=== PATIENT | male | born 1935 | race Caucasian/White ===

== ENCOUNTER → 2020-10-31 06:35 | Outpatient (CLI) | payer MEDICARE, OTHER, SELFPAY ==
--- NOTE | 2020-10-31 06:37 | DI.MRI.S_ITS ---
PROCEDURE: MR LUMBAR SPINE WO CON INDICATIONS: BACK PAIN TECHNIQUE: Noncontrast sagittal T1 spin echo and T2 fast echo, sagittal STIR, axial T1 and T2 fast spin echo through the lumbar spine. In cases with scoliosis, additional coronal T2 fast spin echo may be performed. COMPARISON: [facility], RG, XR L-SPINE 2-3V, 08/31/2020, 13:11. [facility], CR, XR LUMBAR SPINE 2 OR 3 VIEWS, 04/06/2019, 13:25. [facility], MR, L-SPINE WITHOUT CONTRAST, 01/10/2017, 13:52. FINDINGS: Image quality: Excellent. Alignment and Curvature: There is normal bony alignment. In degrees of convex left lumbar spine scoliosis. Bone Marrow: Reactive endplate changes noted adjacent to the L1-L2, L3-L4, L4-L5 and L5-S1 discs. No acute vertebral body compression fractures. Spinal Cord: Conus medullaris terminates at the L1 level. Visualized cord demonstrates normal signal and size. Paraspinous Soft Tissues: No paravertebral masses. T12-L1: Loss of disc signal and slight loss of disc height. Minimal, diffuse disc bulge. No central stenosis. No neural foraminal narrowing. No neural compression. L1-L2: Loss of disc signal. Mild, diffuse disc bulge. Mild bilateral facet hypertrophy. No central stenosis. Mild right neural foraminal narrowing. No neural compression. L2-L3: Loss of disc signal. Mild bilateral facet hypertrophy. Mild narrowing of the central canal. Mild right neural foraminal narrowing. No neural compression. L3-L4: Loss of disc signal and height. Mild, diffuse disc bulge. Kcip-mk-[id number] bilateral facet hypertrophy. Mild to moderate narrowing of the central canal. Mild bilateral neural foraminal narrowing. No neural compression. Fissure noted in the posterior annulus. L4-L5: Loss of disc signal. Mild, diffuse disc bulge. Moderate bilateral facet hypertrophy. Mild to moderate narrowing of the central canal. Mild right and moderate left neural foraminal narrowing. No neural compression. Fissure noted in the anterior annulus. L5-S1: Loss of disc signal and height. Mild bilateral facet hypertrophy. No central stenosis. Mild left neural foraminal narrowing. No neural compression. Fissures noted in the annulus. IMPRESSION: 1. Convex left scoliosis. 2. Multilevel degenerative disc disease. 3. Multilevel facet arthropathy. 4. No severe central canal narrowing. 5. No severe neural foraminal narrowing. 6. No neural compression. 7. L3-L4, L4-L5 and L5-S1 disc annulus fissures. Dictated by: Ada Pepe MD, PhD on 10/31/2020 at 9:57 Approved by: Ada Pepe MD, PhD on 10/31/2020 at 10:23
== END ==
PROVIDERS: Family Provider Internal Medicine; PCP Family Medicine; Referring Provider Physical Medicine & Rehabilitation; Visit Provider Physical Medicine & Rehabilitation
DX: M48.061 Spinal stenosis, lumbar region without neurogenic claudication (principal); M48.07 Spinal stenosis, lumbosacral region; M51.16 Intervertebral disc disorders with radiculopathy, lumbar region; M47.26 Other spondylosis with radiculopathy, lumbar region; M47.27 Other spondylosis with radiculopathy, lumbosacral region; M41.26 Other idiopathic scoliosis, lumbar region
CPT/HCPCS: 72148

== ENCOUNTER → 2020-11-14 07:07 | Outpatient (CLI) | payer MEDICARE, OTHER, SELFPAY ==
[2020-11-14 11:24] LABS: COVID19 -Nasal RAPID Negative (Negative)
== END ==
PROVIDERS: Family Provider Internal Medicine; PCP Family Medicine; Visit Provider Physical Medicine & Rehabilitation
DX: Z20.822 Contact with and (suspected) exposure to COVID-19 (principal)
CPT/HCPCS: 87635; C9803

== ENCOUNTER 2020-11-16 09:55 | Outpatient (CLI) | payer MEDICARE, OTHER, SELFPAY ==
[2020-11-16] VITALS (10 sets, daily range): BP systolic 99–165; BP diastolic 57–68; PULSE 61–70; RESP 12–24; TEMP 36.3; O2SAT 95–100
--- NOTE | 2020-11-16 09:56 | DI.RAD.S_ITS ---
PROCEDURE: PAIN L/S FACET INJ/BLK 1ST LISSET COMPARISON: [facility], RG, XR L-SPINE 2-3V, 08/31/2020, 13:11. INDICATIONS: SPONDYLOSIS FINDINGS: Fluoroscopic spot filming was performed to verify placement of spinal needles at the L4-L5 level and L5-S1 level on both sides, as labeled on the films. Appropriate location of the needle tips was confirmed by injection of iodinated contrast. IMPRESSION: Intraprocedural examination within normal limits. Dictated by: Bebo Kwan M.D. on 11/16/2020 at 11:30 Approved by: Bebo Kwan M.D. on 11/16/2020 at 11:31
[2020-11-16] MEDS: BETAMETHASONE 30 MG/5 ML MDV 12 MG INJ (10:49)
[2020-11-16] MEDS: IOPAMIDOL 15 ML VIAL 3 ML INJ (10:49)
[2020-11-16] MEDS: BUPIVACAINE 0.5% (PF) VIAL 2 ML INJ (10:50)
[2020-11-16] MEDS: LIDOCAINE 1% 20 ML 10 ML INJ (10:51)
[2020-11-16] MEDS: MIDAZOLAM 5 MG/5 ML VIAL IV (10:53)
--- NOTE | 2020-11-16 11:02 | P.PCN_ITS ---
Date/Time/Diagnoses Date of procedure: 11/16/20 Time of procedure: 11:02 Pre-procedure diagnosis: 1. FACET ARTHROPATHY 2. AXIAL LBP 3. MULTILEVEL DDD Post-procedure diagnosis: same Procedure Notes Procedure: 1. FLUOROSCOPICALLY GUIDED CONTRAST CONTROLLED FACET JOINT INJECTIONS BILATERAL L4/5, L5/S1 Indications: Subha is referred by Dr. Oviedo for treatment of Axial LBP Physician: Gary Dwyer Total Fluoroscopy time (seconds): 10 Total sedation minutes: 16 Complications: none Procedure in detail & Post-procedure care: FINDINGS Multilevel Facet Arthropathy with Clinically significant axial LBP DESCRIPTION OF PROCEDURE Fluoroscopically guided, contrast-controlled bilateral L4/5, L5/S1 facet joint injections. Following review of allergy and review of potential side effects and complications, including, but not necessarily limited to, infection, allergic reaction, local tissue breakdown, stroke, temporary or permanent nerve injury, paralysis, and possible , the patient indicated that the patient understood and agreed to proceed. An informed consent document was signed by the patient, witnessed by a nurse, and placed in the patient's chart. Additionally, other treatment options including medications, modalities, and physical therapy were reviewed with the patient. After review of previous anaesthesic history and IV conscious sedation the patient was deemed safe to proceed with today?s procedure with IV conscious sedation as ASA class II designation. Safety time-out was performed to confirm patient ID, procedure to be performed and site of procedure. IV sedation was accomplished with a combination of 3mg of Versed was administered by the RN after DO order, titrated to patient comfort during the course of the procedure while the patient remained responsive to all verbal commands In the prone position, following sterile prep and drape of the lumbar region, the posterior aspect of the L4/5, L5/S1 facet joints were identified fluoroscopically. The skin was anesthetized via a 25-gauge 1.5inch needle with 1% lidocaine solution into the corresponding facet joints. At this point, a 22- gauge 3.5-inch spinal needle was atraumatically introduced and advanced under fluoroscopic guidance into the corresponding facet joints. Following negative aspiration, injections of approximately 0.2cc of Isovue 200 confirmed interarticular placement without vascular uptake. The identical procedure was then performed at the L4/5, L5/S1 facet joints on the left. Radiological data, including multiple fluoroscopic views of the lumbosacral spine, reveal a spinal needle at the L4/5, L5/S1 facet joints bilaterally. Subsequent views show flow of contrast material both superiorly and inferiorly within the joint space without vascular or intrathecal uptake. At this point, a total of 0.5cc including a mixture of 0.25cc Marcaine and 0.25cc betamethasone was injected without complication into each of the corresponding facet joints. The patient tolerated the procedure well without signs or symptoms of complications prior to transfer to the recovery area continued monitoring without incident. The patient was then transferred to the recovery area where they were observed for an appropriate period of time after the injection. The patient reported a VAS score of 7 prior to the procedure and a post- procedure VAS of 0. POST OP INSTRUCTIONS The patient was provided a Pain Log to continue to record their response to the target-specific procedure prior to follow-up visit with their referring physician. Additionally, specific post-injection care instructions and a contact number to our office were provided if concerns arise regarding possible complications associated with the procedure are suspected.
== END 2020-11-16 11:34 | disposition home or self-care (01) ==
LOC: RAD 09:56
PROVIDERS: Family Provider Internal Medicine; PCP Family Medicine; Referring Provider Physical Medicine & Rehabilitation; Visit Provider Physical Medicine & Rehabilitation
DX: M47.816 Spondylosis without myelopathy or radiculopathy, lumbar region (principal); M47.817 Spondylosis without myelopathy or radiculopathy, lumbosacral region; M51.36 Other intervertebral disc degeneration, lumbar region; M51.37 Other intervertebral disc degeneration, lumbosacral region; M54.5 Low back pain
CPT/HCPCS: 64493; 64494; 99152; J0702; J2250; J3010

== ENCOUNTER → 2021-02-19 08:27 | Outpatient (CLI) | payer MEDICARE, OTHER, SELFPAY ==
[2021-02-19 13:01] LABS: COVID19 -Nasal RAPID Negative (Negative)
== END ==
PROVIDERS: Family Provider Internal Medicine; PCP Family Medicine; Visit Provider Physical Medicine & Rehabilitation
DX: Z20.822 Contact with and (suspected) exposure to COVID-19 (principal)
CPT/HCPCS: 87635; C9803

== ENCOUNTER 2021-02-20 10:04 | Outpatient (CLI) | payer MEDICARE, OTHER, SELFPAY ==
[2021-02-20] VITALS (10 sets, daily range): BP systolic 104–143; BP diastolic 57–68; PULSE 61–69; RESP 12–20; TEMP 36.4; O2SAT 95–100
--- NOTE | 2021-02-20 10:07 | DI.RAD.S_ITS ---
PROCEDURE: PAIN L/S FACET INJ/BLK 1ST LISSET COMPARISON: [facility], , PAIN L/S FACET INJ/BLK 1ST LISSET, 11/16/2020, 10:49. INDICATIONS: SPONDYLOSIS FINDINGS: Fluoroscopic spot filming was performed to verify placement of spinal needles on both sides at the L4, L5, and S1 levels, as labeled on the films. Appropriate location of the needle tips was confirmed by injection of iodinated contrast. IMPRESSION: Intraprocedural examination within normal limits. Dictated by: Bebo Kwan M.D. on 02/20/2021 at 11:13 Approved by: Bebo Kwan M.D. on 02/20/2021 at 11:13
[2021-02-20] MEDS: MIDAZOLAM 5 MG/5 ML VIAL IV (11:05)
[2021-02-20] MEDS: fentaNYL 100 MCG/2 ML INJ 50 MCG IV (11:05)
[2021-02-20] MEDS: BUPIVACAINE 0.5% (PF) VIAL 5 ML INJ (11:07)
[2021-02-20] MEDS: IOPAMIDOL 15 ML VIAL 3 ML INJ (11:07)
[2021-02-20] MEDS: LIDOCAINE 1% 20 ML 10 ML INJ (11:07)
--- NOTE | 2021-02-20 11:27 | P.PCN_ITS ---
Date/Time/Diagnoses Date of procedure: 02/20/21 Time of procedure: 11:27 Pre-procedure diagnosis: 1. FACET ARTHROPATHY Post-procedure diagnosis: same Procedure Notes Procedure: 1. BILATERAL- L4, L5 and S1 DIAGNOSTIC MB BLOCKS with LA Anesthetic Indications: Subha is referred by Dr. Oviedo for treatment of Bilateral Axial LBP. Physician: Gary Dwyer Total Fluoroscopy time (seconds): 13 Total sedation minutes: 17 Complications: none Procedure in detail & Post-procedure care: DESCRIPTION OF PROCEDURE Fluoroscopically guided, contrast-controlled bilateral L4, L5 and S1 medial branch blocks with 0.5cc of 0.5% Marcaine. Following review of allergy and review of potential side effects and complications, including, but not necessarily limited to, infection, allergic reaction, local tissue breakdown, nerve injury, paralysis, stroke and possible , the patient indicated that the patient understood and agreed to proceed. An informed consent document was signed by the patient, witnessed by a nurse, and placed in the patient's chart. After review of previous anaesthesic history and IV conscious sedation the patient was deemed safe to proceed with today's procedure with IV conscious sedation as ASA class II designation. Safety time-out was performed to confirm patient ID, procedure to be performed and site of procedure. IV sedation was accomplished with a combination of 2mg of Versed and 50mcg of Fentanyl was administered by the RN after DO order, titrated to patient comfort during the course of the procedure while the patient remained responsive to all verbal commands In the prone position, following sterile prep and drape of the lumbar region, the right L4, L5 and S1 anatomical location of the medial branch of the dorsal ramus was identified fluoroscopically. Subsequently an anesthetic skin wheal using 1% lidocaine solution was initiated at each of the anatomical spots. Subsequently then a 22-gauge 3.5-inch spinal needle was atraumatically introduced and advanced under fluoroscopic guidance at each of the corresponding sites at the right L4, L5 and S1 MB. After negative aspiration, 0.2cc of Isovue 200 was injected, confirming placement without vascular or intrathecal uptake. Subsequently then 0.5cc of 0.5% Marcaine solution was injected at each of the corresponding sites at the right L4, L5 and S1 medial branch locations. The identical procedure was replicated on the left. The patient tolerated the procedure well without signs or symptoms of complications prior to transfer to the recovery area continued monitoring without incident. Post-procedure, the patient was monitored initiating provocative activities to measure the amount of relief from block of the facetogenic pain. The patient reported a VAS of 7 prior to the procedure and a post-procedure VAS of 1. It has been a pleasure to assist in the diagnostic and therapeutic care of your patient. POST OP INSTRUCTIONS The patient was provided with a Pain Log to complete over the next several hours and subsequent days prior to the patient's follow up with the ordering physician. If the patient has supervisor coin machine relief to the solution applied, then they may be a candidate for medial branch rhizotomy. The patient is aware, was provided, once again, with a Pain Log and will follow up with the referring physician for review and clinical correlation
== END 2021-02-20 11:58 | disposition home or self-care (01) ==
PROVIDERS: Family Provider Internal Medicine; PCP Family Medicine; Referring Provider Physical Medicine & Rehabilitation; Visit Provider Physical Medicine & Rehabilitation
DX: M47.816 Spondylosis without myelopathy or radiculopathy, lumbar region (principal); M47.817 Spondylosis without myelopathy or radiculopathy, lumbosacral region; M54.5 Low back pain
CPT/HCPCS: 64493; 64494; 99152; J2250; J3010

== ENCOUNTER → 2021-12-05 08:36 | Outpatient (CLI) | payer MEDICARE, OTHER, SELFPAY ==
--- NOTE | 2021-12-05 08:38 | DI.RAD.S_ITS ---
PROCEDURE: XR HIP W PEL IF DONE LISSET MIN 4V INDICATIONS: Right lateral hip pain status post fall July TECHNIQUE: AP pelvis with lateral views of each hip. COMPARISON: None. FINDINGS: Bones: No acute fractures or dislocations. Pelvic ring appears intact. No suspicious bony lesions. Mild degenerative changes are seen in the hips bilaterally. Degenerative changes also seen in the included lumbar spine. Soft tissues: The visualized bowel gas pattern is normal. No suspicious soft tissue calcifications. IMPRESSION: Mild symmetric bilateral hip osteoarthrosis. No acute osseous abnormality. If the symptoms persist, consider cross sectional imaging such as MRI or CT for further assessment. Dictated by: Celestine Earl M.D. on 12/05/2021 at 11:55 Approved by: Celestine Earl M.D. on 12/05/2021 at 11:56
--- NOTE | 2021-12-05 08:38 | DI.RAD.S_ITS ---
PROCEDURE: XR LUMBAR SPINE MIN 4V INDICATIONS: BACK PAIN TECHNIQUE: 5 views of the lumbar spine were acquired, including bilateral oblique views. COMPARISON: [facility], RG, XR L-SPINE 2-3V, 08/31/2020, 13:11. FINDINGS: Bones: 5 nonrib-bearing vertebrae are present. There is leftward scoliotic curvature within the lumbar spine. Multilevel degenerative disc space narrowing is present most severe at L1-2 and L5-S1. Multilevel anterior bridging osteophytes are present. In addition, severe foraminal narrowing is present at multiple levels most significant at L4-5 and L5-S1. Overall changes are similar compared to prior exam.. No vertebral body compression fractures. No suspicious bony lesions. Soft tissues: Overlying bowel gas pattern is normal. No suspicious soft tissue calcifications. Oblique images: No pars defects. IMPRESSION: Persistent multilevel degenerative changes overall stable compared to prior exam. Dictated by: Saritha Pugh M.D. on 12/05/2021 at 15:16 Approved by: Saritha Pugh M.D. on 12/05/2021 at 15:17
== END ==
PROVIDERS: Family Provider Internal Medicine; PCP Family Medicine; Referring Provider Physical Medicine & Rehabilitation; Visit Provider Physical Medicine & Rehabilitation
DX: M70.61 Trochanteric bursitis, right hip (principal); M47.816 Spondylosis without myelopathy or radiculopathy, lumbar region; M48.061 Spinal stenosis, lumbar region without neurogenic claudication; M54.16 Radiculopathy, lumbar region; M16.0 Bilateral primary osteoarthritis of hip; M41.26 Other idiopathic scoliosis, lumbar region
CPT/HCPCS: 20611; 72110; 73522; 99214; J0702

== ENCOUNTER 2022-04-23 07:11 | Outpatient (CLI) | payer MEDICARE, OTHER, SELFPAY ==
[2022-04-23] VITALS (14 sets, daily range): BP systolic 112–163; BP diastolic 56–97; PULSE 56–65; RESP 12–24; TEMP 36.2; O2SAT 96–99
--- NOTE | 2022-04-23 07:13 | DI.RAD.S_ITS ---
PROCEDURE: PAIN L/S MED/LAT N RFA BILAT INDICATIONS: SPONDYLOSIS COMPARISON: None. FINDINGS: Fluoroscopic spot filming was performed to verify placement of spinal needles at the right L4, L5, and S1 level(s), as labeled on the films. Appropriate location(s) of the needle tip(s) was confirmed by injection of iodinated contrast. IMPRESSION: Fluoro guidance was provided intraoperatively for bilateral L4, L5, S1 medial branch rhizotomy performed by ordering physician. Dictated by: Bryan Ceballos M.D. on 04/23/2022 at 10:54 Approved by: Bryan Ceballos M.D. on 04/23/2022 at 10:55
[2022-04-23] MEDS: BUPIVACAINE 0.5% (PF) VIAL 5 ML INJ (08:35)
[2022-04-23] MEDS: LIDOCAINE 1% 20 ML 5 ML INJ (08:36)
[2022-04-23] MEDS: MIDAZOLAM 2 MG/2 ML VIAL 4 MG IV (09:09)
--- NOTE | 2022-04-23 09:16 | P.PCN_ITS ---
Date/Time/Diagnoses Date of procedure: 04/23/22 Time of procedure: 09:16 Pre-procedure diagnosis: 1. RECALCITRANT FACET ARTHROPATHY Post-procedure diagnosis: same Procedure Notes Procedure: 1. BILATERAL L4 AND L5 MEDIAL BRANCH RADIOFREQUENCY NEUROTOMY AND S1 DORSAL RAMUS BRANCH RADIOFREQUENCY NEUROTOMY Indications: Subha is referred by Dr. Oneal for treatment of facet arthropathy. Physician: Gary Dwyer Total Fluoroscopy time (seconds): 28 Total sedation minutes: 40 Complications: none Procedure in detail & Post-procedure care: DESCRIPTION OF PROCEDURE Bilateral L4 and L5 medial branch radiofrequency neurotomy and bilateral S1 dorsal ramus radiofrequency neurotomy under fluoroscopy with conscious sedation. The patient is well known to this clinic having undergone previous facet injections with good but temporary relief. The patient has experienced appropriate, concordant relief with previous facet and median branch blocks but the patient's pain has been recalcitrant to further conservative measures. Therefore, based upon the patient's relief and persistent symptoms, the patient is considered an appropriate candidate for facet rhizotomy. All of the patient's questions regarding the risks versus benefits of the procedure, including, but not limited to, bleeding, infection, temporary as well as lasting nerve injury, paralysis, stroke, and , as well treatment alternatives were answered to satisfaction. After obtaining informed consent, denial of pertinent drug allergies, as well as being made aware of the potential risks of bleeding, infection, spinal cord trauma, paralysis, temporary and permanent nerve damage, seizure, stroke, and possible , the patient was brought to the fluoroscopy suite and positioned prone on the fluoroscopy table. The lumbar region was prepped with Betadine and covered with a fenestrated drape in the usual sterile fashion. Appropriate monitors applied including pulse oximeter, pulse, and blood pressure for regular monitoring throughout the procedure. After review of previous anaesthesic history and IV conscious sedation the patient was deemed safe to proceed with today's procedure with IV conscious sedation as ASA class II designation. Safety time-out was performed to confirm patient ID, procedure to be performed and site of procedure. IV sedation was accomplished with a combination of 4mg of Versed administered by the RN after DO order, titrated to patient comfort during the course of the procedure while the patient remained responsive to all verbal commands. After local infiltration using 1% lidocaine, under fluoroscopic guidance, a 10- cm RF insulated needle with a 10-mm active tip was positioned parallel to the junction of the right sacral ala and the superior articulating process where the S1 dorsal ramus resides. Needle placement was confirmed with motor stimulation of .5v on the right which produced local stimulation without radicular component. The stimulation was then increased to 2v with, once again, only local multifidus stimulation without radicular component. The needle was then removed and the identical procedure was performed along the length of the right L5 medial branch with motor stimulation at .7v on the right. The identical procedure was once again performed along the length of the right L4 medial branch with motor stimulation of .5v on the right. The medial branches were then anesthetised with 0.5% Marcaine. This was then followed by a discreet lesion performed at 80 degrees Celsius for 90 seconds each. The identical procedure was repeated on the left. The patient tolerated the procedure well without signs or symptoms of complications prior to transfer to the recovery area continued monitoring without incident. The patient was then transferred to the recovery area where they were observed for an appropriate period of time after the injection. The patient reported a VAS score of 9 prior to the procedure and a post-procedure VAS of 0. POST OP INSTRUCTIONS The patient was provided a Pain Log to continue to record the patient's response to the target-specific procedure prior to the patient's follow-up visit with the referring physician. Additionally, specific post-injection care instructions and a contact number to our office were provided if concerns arise regarding possible complications associated with the procedure are suspected.
== END 2022-04-23 09:34 | disposition home or self-care (01) ==
LOC: RAD 07:12
PROVIDERS: Family Provider Internal Medicine; Referring Provider Physical Medicine & Rehabilitation; Visit Provider Physical Medicine & Rehabilitation
DX: M47.816 Spondylosis without myelopathy or radiculopathy, lumbar region (principal); M47.817 Spondylosis without myelopathy or radiculopathy, lumbosacral region
CPT/HCPCS: 64635; 64636; 99152; 99153; J2250

== ENCOUNTER → 2022-08-26 08:02 | Outpatient (CLI) | payer MEDICARE, OTHER, SELFPAY | PROVIDERS: Family Provider Internal Medicine; Visit Provider Specialist | DX: N40.1 Benign prostatic hyperplasia with lower urinary tract symptoms (principal); N13.8 Other obstructive and reflux uropathy | CPT/HCPCS: 51798; 81002; 87086; 99214 ==

== ENCOUNTER 2023-05-24 17:21 | Emergency (ER) | payer MEDICARE, OTHER, SELFPAY ==
[2023-05-24] VITALS (17 sets, daily range): BP systolic 144–184; BP diastolic 64–100; PULSE 67–84; RESP 16; TEMP 36.9; O2SAT 92–100; BMI 23.6
--- NOTE | 2023-05-24 17:49 | PC.NURSE ---
Pt came to the emergency dept today because he fell about a month ago and has been having increasing pain and weakness. Pt states that he fell backward onto a rock and hit his tail bone. Since then, he has been experiencing pain and tenderness that is affecting how he goes about his daily activities and describes as a 9/10. Pain started in his tailbone and now radiates up into his lower and mid back. Pt sees Dr Lees for pain injections regularly and cannot get in to see him until June. Pt denies having any loss of sensation, tingling, or numbness in his extremities. Pt has equal feeling bilaterally and back/tailbone is tender to palpation. A&Ox4. VS WNL.
--- NOTE | 2023-05-24 18:09 | ED.BACK ---
HPI - Back Pain/Injury General Chief Complaint: Back Pain/Injury Stated Complaint: GLF 1ST of month nt getting better Time Seen by Provider: 05/24/23 17:47 Source: patient History of Present Illness HPI Narrative: Patient 79-year-old healthy male history of BPH presents today with low back pain ongoing for about a month. He says he was pulling bernardo out from his yd not on a ladder ground level when he tripped on a root fell backwards landing on his sacrum and low back. He reports that he thought it was a bruise initially however has progressively gotten worse. He now walks with a walker which he is never done before. He has been taking Tylenol and ibuprofen and tramadol at home. He has been using lidocaine patches without any success. He is no numbness tingling or weakness or changes in bowel or bladder habits. He is not hit his head no loss of consciousness no anticoagulation medication Related Data Home Medications Medication Instructions Recorded Confirmed aspirin 81 mg tablet,delayed 81 mg PO DAILY 05/08/20 08/26/22 release (Adult Aspirin Regimen) magnesium 250 mg tablet 250 mg PO DAILY 06/02/20 08/26/22 Previous Rx's Medication Instructions Recorded finasteride 5 mg tablet 5 mg PO DAILY #90 tabs 08/26/22 tamsulosin 0.4 mg capsule 0.4 mg PO BEDTIME #90 caps 08/26/22 hydrocodone 5 mg-acetaminophen 325 1 tab PO Q6H PRN pain #14 tabs 05/24/23 mg tablet Allergies Allergy/AdvReac Type Severity Reaction Status Date / Time Sulfa (Sulfonamide Allergy Verified 08/26/22 08:02 Antibiotics) Patient History Medical History BPH (benign prostatic hyperplasia) BPH w urinary obs/LUTS Facet arthropathy, lumbar Gait instability Greater trochanteric bursitis of right hip Rotator cuff (capsule) sprain Scoliosis Spinal stenosis of lumbar region with radiculopathy Surgical History H/O rotator cuff surgery Hx of appendectomy Family History Brother Cancer Hypertension Social History marital status: number of children: 0 Smoking Status: Never smoker alcohol intake: current caffeine: Yes Smoking Status: Never smoker alcohol intake frequency: 0-2 drinks per day Substance Use Type: does not use Exam Initial Vital Signs Initial Vital Signs: Vital Signs Pulse Rate 84 05/24/23 17:29 GENERAL: Alert well-appearing 79-year-old male CARDIOVASCULAR: peripheral pulses in tact, cap refill <2 sec RESPIRATORY: No respiratory distress, speaks in full sentences without difficulty ABDOMEN: Soft, nontender, no guarding or rebound BACK: Midline vertebral tenderness L4-5 and sacrum. EXTREMITIES: Normal range of motion, no clubbing or edema. Neurovascularly intact NEUROLOGICAL: Cranial nerves II through XII grossly intact. Normal gait and speech. Sensation in lower extremities and able to lift leg SKIN: Warm, dry, no petechiae, no rashes or lesions. Course Orders Ordered: ED Orders 05/24/23 18:17 CT lumbar spine wo con Stat CT pelvis wo con Stat Discontinued Medications Hydrocodone Bitart/Acetaminophen (Hydrocodone/Acet 5/325 Tablet) 1 tab PO NOW ONE Stop: 05/24/23 18:18 Last Admin: 05/24/23 18:26 Dose: 1 tab Documented By: OPAL Hydrocodone Bitart/Acetaminophen (Hydrocodone/Acet 5/325 Prepack) 1 bottle MISC DIRECTED ONE Stop: 05/24/23 19:32 Last Admin: 05/24/23 19:43 Dose: 1 bottle Documented By: [facility] Vital Signs Vital signs: Vital Signs - 8 hr 05/24/23 17:29 05/24/23 17:30 05/24/23 17:30 Temperature Pulse Rate 84 68 Respiratory Rate Blood Pressure 184/81 H Pulse Oximetry Oxygen Delivery Method 05/24/23 17:35 05/24/23 18:00 05/24/23 18:41 Temperature 98.4 F Pulse Rate 68 80 69 Respiratory Rate 16 Blood Pressure 184/81 H Pulse Oximetry 98 92 Oxygen Delivery Method Room Air 05/24/23 18:42 05/24/23 18:42 05/24/23 18:45 Temperature Pulse Rate 71 Respiratory Rate Blood Pressure 182/77 H 174/74 H Pulse Oximetry 98 Oxygen Delivery Method 05/24/23 18:45 05/24/23 18:50 05/24/23 18:50 Temperature Pulse Rate 70 73 Respiratory Rate Blood Pressure 147/99 H Pulse Oximetry 100 98 Oxygen Delivery Method 05/24/23 18:55 05/24/23 18:55 05/24/23 19:00 Temperature Pulse Rate 69 Respiratory Rate Blood Pressure 147/100 H 147/92 H Pulse Oximetry 99 Oxygen Delivery Method 05/24/23 19:00 05/24/23 19:05 05/24/23 19:05 Temperature Pulse Rate 69 70 Respiratory Rate Blood Pressure 172/74 H Pulse Oximetry 99 98 Oxygen Delivery Method 05/24/23 19:10 05/24/23 19:10 05/24/23 19:15 Temperature Pulse Rate 68 Respiratory Rate Blood Pressure 156/69 H 144/64 H Pulse Oximetry 97 Oxygen Delivery Method 05/24/23 19:15 05/24/23 19:21 05/24/23 19:21 Temperature Pulse Rate 68 70 Respiratory Rate Blood Pressure 158/67 H Pulse Oximetry 99 98 Oxygen Delivery Method 05/24/23 19:25 05/24/23 19:25 05/24/23 19:30 Temperature Pulse Rate 67 68 Respiratory Rate Blood Pressure 148/64 H Pulse Oximetry 98 98 Oxygen Delivery Method 05/24/23 19:31 05/24/23 19:31 Temperature Pulse Rate 69 Respiratory Rate Blood Pressure 163/69 H Pulse Oximetry 98 Oxygen Delivery Method MDM - Back Pain/Injury Imaging Data CT lumbar: Radiologist's Impression: PROCEDURE: CT LUMBAR SPINE WO CON INDICATIONS: pain fall TECHNIQUE: Noncontrast 3 mm thick sections acquired from the T12 level to the sacrum. Sagittal and coronal reformats were constructed. For radiation dose reduction, the following was used: automated exposure control. COMPARISON: None. FINDINGS: Image quality: Excellent. Bones: There is normal bony alignment. No acute vertebral body compression fractures. No suspicious lytic or blastic bony lesions. No pars defects. T12-L1: Moderate disc height loss. No significant spinal canal or neural foraminal narrowing. L1-L2: Moderate to severe disc height loss. Moderate right and mild left neural foraminal narrowing and moderate spinal canal narrowing. Facet hypertrophy. L2-L3: Mild disc height loss. Disc osteophyte complex and facet hypertrophy. No significant spinal canal or neural foraminal narrowing. L3-L4: Moderate disc height loss. Disc osteophyte complex. Facet hypertrophy. Mild spinal canal narrowing. L4-L5: Broad-based disc bulge, disc osteophyte complex, facet hypertrophy causing moderate spinal canal narrowing and moderate bilateral neural foraminal narrowing. L5-S1: Broad-based disc bulge. Soft tissues: No retroperitoneal masses or hematomas. Visualized aorta is normal in caliber. IMPRESSION: No acute, displaced fracture or traumatic subluxation. Multilevel degenerative disc disease and facet arthrosis, without severe spinal canal or neural foraminal narrowing. Dictated by: Delonte Kellogg M.D. on 05/24/2023 at 17:56 Ct pelvis: Radiologist's Impression: PROCEDURE: CT PEL WO CON INDICATIONS: fall TECHNIQUE: Noncontrast 3 mm axial sections acquired through the bony pelvis, with coronal and sagittal reformatting. COMPARISON: None. FINDINGS: Image quality: Excellent. Bones: No displaced fracture. Degenerative changes of the sacroiliac joints, hips and lower lumbar spine. Soft tissues: Colonic diverticulosis without evidence of diverticulitis. Normal bladder. Fat within the inguinal canals. No hydroureter. IMPRESSION: No displaced fracture. Dictated by: Delonte Kellogg M.D. on 05/24/2023 at 17:53 [facility] Narrative Medical decision making narrative: Patient very well-appearing 87-year-old male who presents today with back pain after fall about 4 weeks ago. He fell directly on his sacrum and lumbar spine he is tender midline. Imaging has been reviewed there is no fracture compression fracture. He is given [place] here in the ED which he tolerated well and help with his pain some. He has been taking lidocaine patches [id number] which helps a little.. We discussed pain management home. He has no cauda equina symptoms. It CT show some degenerative disc disease, but no fracture. Discharge Plan Departure Patient Disposition: Home Clinical Impression: Degenerative disk disease Instructions: Degenerative Disc Disease Activity Restrictions/Additional Instructions: *You have been diagnosed with degenerative disc disease *What to do: At this time increase activity as tolerated use a pillow as needed *Continue to take medications as directed--> SAFEWAY [place] 1 tablet every 4-6 hours if needed for severe pain Ibuprofen 600 mg every 6 hours if needed for [id number] pain Continue lidocaine patches every 12 hours then remove as needed *Follow up with your primary care provider in 2-3 days or call [phone] *Return to ER if you should have increased pain numbness tingling weakness loss of urine or stool or any new, worsening or concerning symptoms CONTROLLED SUBSTANCE DISCHARGE (Narcotoic/benzodiazepine/Flexeril/Phenergan) 1. You have been prescribed narcotic medications, it does have acetaminophen/Tylenol/paracetamol in it, DO NOT TAKE MORE THAN 4,00mg in 24 hours of Tylenol. TRAMADOL DOES NOT CONTAIN TYLENOL 2. Please understand that we cannot provide further refills of narcotics, benzodiazepines or controlled substances through the ED and her pain management will need to be through your provider. 3. While on these medications you cannot drive or operate heavy machinery. 4. You cannot sign legal documents or perform any duties such as this. 5. As long as you're taking opiate pain medications he should also be taking a stool softener such as Colace, Dulcolax, MiraLAX or prune juice, to help avoid constipation. Prescriptions: New hydrocodone-acetaminophen 5-325 mg tablet 1 tab PO Q6H PRN (Reason: pain) Qty: 14 0RF No Action aspirin [Adult Aspirin Regimen] 81 mg tablet,delayed release (DR/EC) 81 mg PO DAILY magnesium 250 mg tablet 250 mg PO DAILY tamsulosin 0.4 mg capsule 0.4 mg PO BEDTIME Qty: 90 3RF finasteride 5 mg tablet 5 mg PO DAILY Qty: 90 3RF Referrals: Miscellaneous,Doctor, MD [Primary Care Provider] - Stand Alone Forms: Patient Portal/API
--- NOTE | 2023-05-24 18:17 | DI.CT.S_ITS ---
PROCEDURE: CT LUMBAR SPINE WO CON INDICATIONS: pain fall TECHNIQUE: Noncontrast 3 mm thick sections acquired from the T12 level to the sacrum. Sagittal and coronal reformats were constructed. For radiation dose reduction, the following was used: automated exposure control. COMPARISON: None. FINDINGS: Image quality: Excellent. Bones: There is normal bony alignment. No acute vertebral body compression fractures. No suspicious lytic or blastic bony lesions. No pars defects. T12-L1: Moderate disc height loss. No significant spinal canal or neural foraminal narrowing. L1-L2: Moderate to severe disc height loss. Moderate right and mild left neural foraminal narrowing and moderate spinal canal narrowing. Facet hypertrophy. L2-L3: Mild disc height loss. Disc osteophyte complex and facet hypertrophy. No significant spinal canal or neural foraminal narrowing. L3-L4: Moderate disc height loss. Disc osteophyte complex. Facet hypertrophy. Mild spinal canal narrowing. L4-L5: Broad-based disc bulge, disc osteophyte complex, facet hypertrophy causing moderate spinal canal narrowing and moderate bilateral neural foraminal narrowing. L5-S1: Broad-based disc bulge. Soft tissues: No retroperitoneal masses or hematomas. Visualized aorta is normal in caliber. IMPRESSION: No acute, displaced fracture or traumatic subluxation. Multilevel degenerative disc disease and facet arthrosis, without severe spinal canal or neural foraminal narrowing. Dictated by: Delonte Kellogg M.D. on 05/24/2023 at 17:56 Approved by: Delonte Kellogg M.D. on 05/24/2023 at 17:59
--- NOTE | 2023-05-24 18:17 | DI.CT.S_ITS ---
PROCEDURE: CT PEL WO CON INDICATIONS: fall TECHNIQUE: Noncontrast 3 mm axial sections acquired through the bony pelvis, with coronal and sagittal reformatting. COMPARISON: None. FINDINGS: Image quality: Excellent. Bones: No displaced fracture. Degenerative changes of the sacroiliac joints, hips and lower lumbar spine. Soft tissues: Colonic diverticulosis without evidence of diverticulitis. Normal bladder. Fat within the inguinal canals. No hydroureter. IMPRESSION: No displaced fracture. Dictated by: Delonte Kellogg M.D. on 05/24/2023 at 17:53 Approved by: Delonte Kellogg M.D. on 05/24/2023 at 17:55
[2023-05-24] MEDS: HYDROCODONE/ACET 5/325 TABLET 1 TAB PO (18:26)
--- NOTE | 2023-05-24 19:00 | PC.NURSE ---
Pt reports pain is still at 9\10. Pt declined position changes and stated he wanted to get his pain under control before he started moving around.
[2023-05-24] MEDS: HYDROCODONE/ACET 5/325 PREPACK 1 BOTTLE MISC (19:43)
== END 2023-05-24 19:52 | disposition home or self-care (01) ==
PROVIDERS: Emergency Provider Emergency Medicine; Family Provider Internal Medicine
DX: M51.36 Other intervertebral disc degeneration, lumbar region (principal)
CPT/HCPCS: 72131; 72192; 99283; 99284

== ENCOUNTER 2023-05-30 02:12 | Emergency (ER) | payer MEDICARE, OTHER, SELFPAY ==
[2023-05-30 02:15] VITALS: BP 129/61; PULSE 82; RESP 18; TEMP 37.4; O2SAT 97; BMI 23.6
[2023-05-30] MEDS: LIDOCAINE VISCOUS 2% 15 ML SOLUTION PO (02:54)
--- NOTE | 2023-05-30 02:55 | ED_ITS ---
HPI - URI/Sore Throat General Chief Complaint: Upper Respiratory Symptoms Stated Complaint: not feeling well Time Seen by Provider: 05/30/23 02:24 Source: patient Mode of arrival: Ambulatory History of Present Illness HPI Narrative: 87-year-old male presents from home by private vehicle for 2 days of sore throat and general malaise. Symptoms have gradually worsened since onset, he reports that swallowing feels ?like razor blades?, and it has caused him to not be able to sleep Related Data Home Medications Medication Instructions Recorded Confirmed aspirin 81 mg tablet,delayed 81 mg PO DAILY 05/08/20 08/26/22 release (Adult Aspirin Regimen) magnesium 250 mg tablet 250 mg PO DAILY 06/02/20 08/26/22 Previous Rx's Medication Instructions Recorded finasteride 5 mg tablet 5 mg PO DAILY #90 tabs 08/26/22 tamsulosin 0.4 mg capsule 0.4 mg PO BEDTIME #90 caps 08/26/22 hydrocodone 5 mg-acetaminophen 325 1 tab PO Q6H PRN pain #14 tabs 05/24/23 mg tablet Allergies Allergy/AdvReac Type Severity Reaction Status Date / Time Sulfa (Sulfonamide Allergy Verified 08/26/22 08:02 Antibiotics) Review of Systems Review of Systems Narrative: negative except as noted above Patient History Medical History Gait instability Greater trochanteric bursitis of right hip Spinal stenosis of lumbar region with radiculopathy Facet arthropathy, lumbar Scoliosis BPH w urinary obs/LUTS Rotator cuff (capsule) sprain BPH (benign prostatic hyperplasia) Surgical History H/O rotator cuff surgery Hx of appendectomy Family History Brother Cancer Hypertension Social History marital status: number of children: 0 Smoking Status: Never smoker alcohol intake: current caffeine: Yes Smoking Status: Never smoker alcohol intake frequency: 0-2 drinks per day Substance Use Type: does not use Exam Initial Vital Signs Initial Vital Signs: Vital Signs Temperature 99.3 F 05/30/23 02:15 Pulse Rate 82 05/30/23 02:15 Respiratory Rate 18 05/30/23 02:15 Blood Pressure 129/61 05/30/23 02:15 Pulse Oximetry 97 05/30/23 02:15 Oxygen Delivery Method Room Air 05/30/23 02:15 Const: Awake, alert, no acute distress, nontoxic appearing Eyes: PERRL, EOMI, conjunctiva normal ENT: Mucous membranes moist, marked bilateral pharyngeal erythema, no edema, no exudates Cardiac: regular rate, regular rhythm RESP: unlabored, clear bilaterally, no wheezing Skin: Warm, Dry, intact, no rashes Neuro: AO x3, CN II-XII grossly intact, moves all extremities Psych: affect normal, mood normal, not suicidal, not homicidal Course Course Course Narrative: Sore throat general malaise. Vitals unremarkable, patient nontoxic in appearance. Respiratory panel is positive for COVID-19. Patient was given vi scous lidocaine which did temporarily improve his symptoms. Patient counseled on results of viral panel and supportive measures for home counseled at bedside. Orders Ordered: ED Orders 05/30/23 02:52 Respiratory Panel (Film Array) Stat Discontinued Medications Lidocaine HCl (Lidocaine Viscous 2% 15 Ml Solution) 15 ml PO NOW ONE Stop: 05/30/23 02:29 Last Admin: 05/30/23 02:54 Dose: 15 ml Documented By: LIANG Vital Signs Vital signs: Vital Signs - 8 hr 05/30/23 02:15 05/30/23 04:17 05/30/23 04:18 Temperature 99.3 F 101.4 F H 100.3 F H Pulse Rate 82 72 Respiratory Rate 18 20 Blood Pressure 129/61 151/67 H Pulse Oximetry 97 92 Oxygen Delivery Method Room Air Room Air MDM - URI/Sore Throat Lab Data Labs: Lab Results 05/30/23 Range/Units 02:52 Chlamy pneumoniae PCR Not detected (Not Detect) Adenovirus (PCR) Not detected (Not Detect) B.parapertussis DNA PCR Not detected (Not Detecte) Coronavirus OC43 (PCR) Not detected (Not Detect) Coronavirus HKU1 (PCR) Not detected (Not Detect) Coronavirus 229E (PCR) Not detected (Not Detect) SARS-CoV-2 (PCR) Detected H (Not Detecte) Coronavirus NL63 (PCR) Not detected (Not Detect) Human Metapneumovir PCR Not detected (Not Detect) Influenza Type A (PCR) Not detected (Not Detect) Influenza Type B (PCR) Not detected (Not Detect) M. pneumoniae (PCR) Not detected (Not Detect) Parainfluenza 1 (PCR) Not detected (Not Detect) Parainfluenza 2 (PCR) Not detected (Not Detect) Parainfluenza 3 (PCR) Not detected (Not Detect) Parainfluenza 4 (PCR) Not detected (Not Detect) RSV (PCR) Not detected (Not Detect) Entero/Rhino (PCR) Not detected (Not Detect) Discharge Plan Departure Patient Disposition: Home Clinical Impression: COVID-19 Pharyngitis Qualifiers: Pharyngitis/tonsillitis etiology: unspecified etiology Qualified Code(s): J02.9 - Acute pharyngitis, unspecified Instructions: COVID-19 Prescriptions: No Action aspirin [Adult Aspirin Regimen] 81 mg tablet,delayed release (DR/EC) 81 mg PO DAILY magnesium 250 mg tablet 250 mg PO DAILY hydrocodone-acetaminophen 5-325 mg tablet 1 tab PO Q6H PRN (Reason: pain) Qty: 14 0RF tamsulosin 0.4 mg capsule 0.4 mg PO BEDTIME Qty: 90 3RF finasteride 5 mg tablet 5 mg PO DAILY Qty: 90 3RF Referrals: Miscellaneous,Doctor, MD [Primary Care Provider] - Stand Alone Forms: Patient Portal/API
[2023-05-30 03:57] LABS: Adenovirus Not Detected (Not Detect); B. parapertussis Not Detected (Not Detecte); Bordetella pertussis Not Detected (Not Detect); Chlamydophila pneumoniae Not Detected (Not Detect); Coronavirus 229E Not Detected (Not Detect); Coronavirus HKU1 Not Detected (Not Detect); Coronavirus NL 63 Not Detected (Not Detect); Coronavirus OC43 Not Detected (Not Detect); Human Metapneumovirus Not Detected (Not Detect); Human Rhinovirus/Enterovirus Not Detected (Not Detect); Influenza A Not Detected (Not Detect); Influenza B Not Detected (Not Detect); Mycoplasma pneumoniae Not Detected (Not Detect); Parainfluenza Virus 1 Not Detected (Not Detect); Parainfluenza Virus 2 Not Detected (Not Detect); Parainfluenza Virus 3 Not Detected (Not Detect); Parainfluenza Virus 4 Not Detected (Not Detect); Respiratory Syncytial Virus Not Detected (Not Detect)
[2023-05-30 04:01] LABS: SARS- CoV-2 Detected (Not Detecte)
[2023-05-30 04:17] VITALS: BP 151/67; PULSE 72; RESP 20; TEMP 38.6; O2SAT 92
[2023-05-30 04:18] VITALS: TEMP 37.9
== END 2023-05-30 04:20 | disposition home or self-care (01) ==
PROVIDERS: Emergency Provider Emergency Medicine; Family Provider Internal Medicine
DX: U07.1 COVID-19 (principal)
CPT/HCPCS: 87633; 99283

== ENCOUNTER 2023-07-03 08:03 | Outpatient (CLI) | payer MEDICARE, OTHER, SELFPAY ==
[2023-07-03] VITALS (10 sets, daily range): BP systolic 106–153; BP diastolic 53–66; PULSE 62–72; RESP 13–20; TEMP 36.4; O2SAT 93–99
--- NOTE | 2023-07-03 08:45 | DI.RAD.S_ITS ---
PROCEDURE: PAIN SI JOINT INJECTION LISSET INDICATIONS: JOINT DYSFUNCTION COMPARISON: None. FINDINGS: Fluoroscopic spot filming was performed to verify placement of spinal needles at the SI joints as labeled on the films. Appropriate location(s) of the needle tip(s) was confirmed by injection of iodinated contrast. IMPRESSION: Fluoroscopy for pain management. Dictated by: Rosio Leon M.D. on 07/03/2023 at 12:36 Approved by: Rosio Leon M.D. on 07/03/2023 at 12:38
[2023-07-03] MEDS: MIDAZOLAM 2 MG/2 ML VIAL IV (09:00)
[2023-07-03] MEDS: BETAMETHASONE 30 MG/5 ML MDV 12 MG INJ (09:06)
[2023-07-03] MEDS: iopamidoL 15 ML VIAL 3 ML INJ (09:06)
[2023-07-03] MEDS: LIDOCAINE 1% 20 ML 5 ML INJ (09:07)
[2023-07-03] MEDS: BUPIVACAINE 0.5% (PF) 10 ML VIAL 2 ML INJ (09:07)
--- NOTE | 2023-07-03 09:19 | PM.PROC.IR.1 ---
Date/Time/Diagnoses Date of procedure: 07/03/23 Time of procedure: 09:19 Pre-procedure diagnosis: Sacroiliac joint pain/DJD Post-procedure diagnosis: same Procedure Notes Procedure: Fluoroscopic guided contrast controlled bilateral sacroiliac joint injection Indications: Subha is referred by Dr. Jones for treatment of bilateral sacroiliac joint DJD Physician: Gary Dwyer Total Fluoroscopy time (seconds): 13 Total sedation minutes: 14 Complications: none Procedure in detail & Post-procedure care: Description of procedure Fluoroscopic guided, contrast controlled bilateral sacroiliac joint injection Following review of allergies and review of potential side effects and complications, including, but not necessarily limited to, infection, allergic reaction, local tissue breakdown, temporary as well as permanent nerve injury, paralysis, stroke and possible , the patient indicated that they understood and agreed to proceed. An informed consent was signed by the patient, witnessed by a nurse, and placed in the patient's chart. Additionally, other treatment options including modalities, medications, and physical therapy were reviewed with the patient. After review of previous anaesthesic history and IV conscious sedation the patient was deemed safe to proceed with today?s procedure with IV conscious sedation as ASA class II designation. Safety time-out was performed to confirm patient ID, procedure to be performed and site of procedure. IV sedation was accomplished with a combination of 2mg Versed and 50mcg of Fentanyl were administered by the RN after DO order, titrated to patient comfort during the course of the procedure while the patient remained responsive to all verbal commands In the prone position following sterile prep and drape of the pelvic region, the hyper lucency on in the inferior aspect of the sacroiliac joint was identified fluoroscopically the skin was anesthetized be a 25 gauge 1.5 inch needle with approximately 2cc of 1% lidocaine solution. At this point, a 22 gauge 3 in spinal needle was atraumatically introduced and advanced under fluoroscopic guidance into the inferior aspect of the right sacroiliac joint. Following negative aspiration, approximately 0.3cc of [id number]-300 was injected confirming intra-articular placement without vascular uptake. Radiographic data, including multiple fluoroscopic views of the pelvis, reveals a spinal needle in the sacroiliac joint hyper lucent zone. Subsequent view show flow contrast tear superiorly and inferiorly within the joint capsule without vascular intrathecal uptake. At this point a total of 1cc of 0.5% Marcaine was combined with 1cc of 6mg of betamethasone was injected without incident. Attention was then refocused the left sacroiliac joint where the procedure was replicated. The procedure tolerated the procedure well without signs or symptoms of complications prior to transfer to the recovery area continued monitoring without incident. The patient was then transferred to the recovery area with a bur observed for an appropriate time after the injection. The patient reverted a vas score of 7 prior to the procedure and post-procedure vas of 1. Postop instructions The patient was provided with a pain like to continue to record the patient's response to the target specific procedure prior to the patient's follow-up visit with the referring physician. Additionally, specific post injection care instructions and a contact number to our office were provided if concerns arise regarding the possible complications associated with procedure are suspected.
--- NOTE | 2023-07-03 12:12 | PC.NURSE ---
Patient returned to post procedure room c/o feeling dizzy and seeing double vision. Please see vitals, feet were elevated and chair was reclined. 1020- patient back at baseline, denies any further dizziness, able to walk in place and steady on feet.
== END 2023-07-03 10:20 | disposition home or self-care (01) ==
LOC: RAD 08:05
PROVIDERS: Family Provider Internal Medicine; PCP Family Medicine; Referring Provider Physical Medicine & Rehabilitation; Visit Provider Physical Medicine & Rehabilitation
DX: M46.1 Sacroiliitis, not elsewhere classified (principal); M53.3 Sacrococcygeal disorders, not elsewhere classified
CPT/HCPCS: 27096; 77002; 99152; J0702; J2250

== ENCOUNTER → 2023-11-20 09:51 | Outpatient (CLI) | payer MEDICARE, OTHER, SELFPAY | LOC: PHYS 09:52 | PROVIDERS: Family Provider Internal Medicine; PCP Family Medicine; Referring Provider Physical Medicine & Rehabilitation; Visit Provider Physical Medicine & Rehabilitation | DX: R26.81 Unsteadiness on feet (principal); M48.061 Spinal stenosis, lumbar region without neurogenic claudication; M54.16 Radiculopathy, lumbar region | CPT/HCPCS: 95886; 95910 ==

== ENCOUNTER → 2023-11-27 07:44 | Outpatient (CLI) | payer MEDICARE, OTHER, SELFPAY | LOC: PHYS 07:44 | PROVIDERS: Family Provider Internal Medicine; PCP Family Medicine; Referring Provider Physical Medicine & Rehabilitation; Visit Provider Physical Medicine & Rehabilitation | DX: R26.81 Unsteadiness on feet (principal); M54.16 Radiculopathy, lumbar region; M48.061 Spinal stenosis, lumbar region without neurogenic claudication | CPT/HCPCS: 95885; 95886; 95912 ==